=== PATIENT | female | born 1945 | race Caucasian/White ===

== ENCOUNTER 2021-08-17 10:13 | Inpatient (IN) ==
[2021-08-17] MEDS ORDERED: PIPERACILLIN/TAZOBACTAM 3,375 MG in SODIUM CHLORIDE 0.9% 100 ML IV STA (11:56)
[2021-08-17] MEDS ORDERED: SODIUM CHLORIDE 0.9% 500 ML IV STA (11:56)
[2021-08-17 12:57] LABS: Basophils # 0.1 10*3/uL (0.0-0.2); Basophils % 0.4 % (0.0-0.8); Eosinophils # 0.1 10*3/uL (0.0-0.87); Eosinophils % 0.2 % (0.00-10.9); Hematocrit 31.4 VOL% (35.7-47.0); Hemoglobin 9.8 GM/DL (12.0-16.0); Immature Granulocytes Absolute 0.62 #; Lymphocytes # 2.4 10*3/uL (1.4-4.0); Lymphocytes % 11.5 % (21.3-54.2); Mean Corpuscular HGB Conc 31.2 GM/DL (32-36); Mean Corpuscular Volume 91.5 FL (87-102); Mean Platelet Volume 10.5 FL (9.6-12.0); Monocytes % 5.6 % (1.7-12.7); Neutrophils % 79.3 % (38.7-73.9); Platelet Count 370 T/CUMM (130-400); Red Blood Count 3.43 MC/CUMM (3.8-5.5); Red Cell Distribution Width 14.6 % (9.3-17.3); White Blood Count 20.8 T/CUMM (4-12)
[2021-08-17 13:15] LABS: Bacteria,Urine Many /HPF (Few); Mucus,Urine Many /LPF (Occasional); RBC,Urine 3 /HPF (0-4); Squamous Epithelial Cell,Urine Occasional /HPF (0-10); Urine Appearance Slightly Cloudy (Clear); Urine Color Amber (Yellow)
[2021-08-17 13:16] LABS: Bilirubin,Urine Small mg/dL (Negative); Blood, Urine Negative (Negative); Glucose,Urine (UA) Negative (Negative); Ketones,Urine Trace mg/dL (Negative); Nitrite,Urine Positive (Negative); Protein,Urine 1+ MG/DL; Urine Urobilinogen > 8.0 EU/DL (<2.0); Urine pH 5.5 (4.5-8.0)
[2021-08-17 13:20] LABS: Alanine Aminotransferase 43 U/L (13-56); Albumin 1.8 G/DL (3.4-5.0); Alkaline Phosphatase 117 U/L (45-117); Aspartate Amino Transferase 73 U/L (0-37); Blood Urea Nitrogen 23 MG/DL (7-18); Calcium 8.2 MG/DL (8.5-10.1); Carbon Dioxide 18 MMOL/L (21-32); Estimated Glom Filtration Rate 35 ML/MIN; Glucose 134 MG/DL (74-106); Osmolality,Calculated 278.8 MOS/KG (273-304); Sodium 137 MMOL/L (136-145); Total Protein 6.5 G/DL (6.4-8.2)
[2021-08-17] MEDS ORDERED: ONDANSETRON 4 MG/2 ML VIAL IV PRN (13:32)
[2021-08-17] MEDS ORDERED: ACETAMINOPHEN 325 MG TABLET PO PRN (13:32)
[2021-08-17] MEDS ORDERED: ALBUTEROL/IPRATROPIUM 3 ML NEB RESP TX PRN (13:32)
[2021-08-17] MEDS ORDERED: HYDROmorphone 2 MG/1 ML VIAL IV PRN ×2 (13:32)
[2021-08-17 13:36] LABS: Lymphocytes 10 % (20-55); Platelet Estimate Normal; Segmented Neutrophils 84 % (50-85); Total Cells Counted 100
[2021-08-17] MEDS ORDERED: GLUCAGON 1 MG VIAL IM PRN (13:43)
[2021-08-17] MEDS ORDERED: hydrALAZINE 20 MG/1 ML VIAL IV PRN (13:43)
[2021-08-17] MEDS ORDERED: LACTATED RINGERS 2,000 ML IV ONE (13:48)
[2021-08-17] MEDS ORDERED: DEXTROSE 10% 250 ML BAG IV PRN (13:57)
[2021-08-17] MEDS ORDERED: SUCCINYLCHOLINE 200 MG/10 ML VIAL ONE (14:25)
[2021-08-17] MEDS ORDERED: LIDOCAINE 2% 5 ML VIAL ONE (14:25)
[2021-08-17] MEDS ORDERED: propofoL 200 MG/20 ML VIAL IV ONE (14:25)
[2021-08-17] MEDS ORDERED: MIDAZOLAM 2 MG/2 ML VIAL ONE (14:25)
[2021-08-17] MEDS ORDERED: fentaNYL 100 MCG/2 ML VIAL ONE (14:25)
[2021-08-17] MEDS ORDERED: BUPIVACAINE SPINAL 0.75% 2 ML AMP SPINAL ONE (15:00)
[2021-08-17] MEDS ORDERED: ONDANSETRON 4 MG/2 ML VIAL ONE (15:13)
[2021-08-17] MEDS ORDERED: VANCOMYCIN INJ 1,000 MG in SODIUM CHLORIDE 0.9% 250 ML IV SCH (15:30)
[2021-08-17] MEDS: LACTATED RINGERS 1,000 ML IV SCH ×2 (18:00→22:20)
[2021-08-17] MEDS: PIPERACILLIN/TAZOBACTAM 3,375 MG in SODIUM CHLORIDE 0.9% 100 ML IV SCH (18:41)
[2021-08-17] MEDS: GABAPENTIN 300 MG CAPSULE PO SCH (22:06)
[2021-08-17] MEDS: DOCUSATE SODIUM 100 MG CAPSULE PO SCH (22:06)
[2021-08-17] MEDS: LOSARTAN 25 MG TABLET PO SCH (22:06)
[2021-08-18] MEDS: GABAPENTIN 300 MG CAPSULE PO SCH ×2 (09:17→21:49)
[2021-08-18] MEDS: ASPIRIN EC 81 MG TABLET PO SCH (09:17)
[2021-08-18] MEDS: DOCUSATE SODIUM 100 MG CAPSULE PO SCH ×2 (09:17→21:49)
[2021-08-18] MEDS: POTASSIUM CHLORIDE 10 MEQ TABLET PO SCH (09:17)
[2021-08-18] MEDS: LOSARTAN 25 MG TABLET PO SCH ×2 (09:17→21:49)
[2021-08-18] MEDS: PIPERACILLIN/TAZOBACTAM 3,375 MG in SODIUM CHLORIDE 0.9% 100 ML IV SCH ×4 (09:18→23:54)
[2021-08-18] MEDS: DIAZEPAM 2 MG TABLET PO SCH (09:18)
[2021-08-18] MEDS: PANTOPRAZOLE 40 MG TABLET PO SCH (09:18)
[2021-08-18 09:37] LABS: Basophils % 0.3 % (0.0-0.8); Eosinophils # 0.1 10*3/uL (0.0-0.87); Eosinophils % 0.5 % (0.00-10.9); Hematocrit 27.4 VOL% (35.7-47.0); Hemoglobin 8.4 GM/DL (12.0-16.0); Immature Granulocytes % 3.1 %; Immature Granulocytes Absolute 0.42 #; Lymphocytes # 1.6 10*3/uL (1.4-4.0); Lymphocytes % 11.5 % (21.3-54.2); Mean Corpuscular HGB Conc 30.7 GM/DL (32-36); Mean Corpuscular Volume 93.8 FL (87-102); Monocytes % 6.8 % (1.7-12.7); Neutrophils % 77.8 % (38.7-73.9); Platelet Count 270 T/CUMM (130-400); Red Blood Count 2.92 MC/CUMM (3.8-5.5); Red Cell Distribution Width 14.8 % (9.3-17.3); White Blood Count 13.8 T/CUMM (4-12)
[2021-08-18 09:58] LABS: Osmolality,Calculated 287.1 MOS/KG (273-304); Potassium 3.9 MMOL/L (3.5-5.1)
[2021-08-18] MEDS: SODIUM HYPOCHLORITE 0.25% IRRIG 473 ML BOTTLE TOP SCH (12:59)
[2021-08-18] MEDS: LACTATED RINGERS 1,000 ML IV SCH ×3 (15:58→23:09)
[2021-08-19 05:01] LABS: Basophils # 0.1 10*3/uL (0.0-0.2); Basophils % 0.5 % (0.0-0.8); Eosinophils # 0.1 10*3/uL (0.0-0.87); Hematocrit 25.4 VOL% (35.7-47.0); Hemoglobin 7.8 GM/DL (12.0-16.0); Immature Granulocytes % 5.7 %; Immature Granulocytes Absolute 0.76 #; Lymphocytes # 2.3 10*3/uL (1.4-4.0); Lymphocytes % 17.4 % (21.3-54.2); Mean Corpuscular HGB Conc 30.7 GM/DL (32-36); Mean Platelet Volume 10.3 FL (9.6-12.0); Monocytes % 6.8 % (1.7-12.7); Neutrophils % 68.6 % (38.7-73.9); Platelet Count 260 T/CUMM (130-400); Red Blood Count 2.73 MC/CUMM (3.8-5.5); Red Cell Distribution Width 14.9 % (9.3-17.3); White Blood Count 13.2 T/CUMM (4-12)
[2021-08-19 05:17] LABS: Calcium 7.9 MG/DL (8.5-10.1); Potassium 3.9 MMOL/L (3.5-5.1)
[2021-08-19 05:45] LABS: Eosinophils 2 % (0-10); Lymphocytes 23 % (20-55); Platelet Estimate Adequate; Segmented Neutrophils 72 % (50-85); Total Cells Counted 100
[2021-08-19] MEDS: LACTATED RINGERS 1,000 ML IV SCH ×3 (06:20→23:19)
[2021-08-19] MEDS: PIPERACILLIN/TAZOBACTAM 3,375 MG in SODIUM CHLORIDE 0.9% 100 ML IV SCH (09:18)
[2021-08-19] MEDS ORDERED: fentaNYL 100 MCG/2 ML VIAL ONE (10:11)
[2021-08-19] MEDS ORDERED: MIDAZOLAM 2 MG/2 ML VIAL ONE (10:12)
[2021-08-19] MEDS ORDERED: SEVOFLURANE 1 UNIT/15 MINUTE INH ONE ×3 (11:24→11:26)
[2021-08-19] MEDS ORDERED: LIDOCAINE 2% 5 ML VIAL ONE (11:26)
[2021-08-19] MEDS ORDERED: propofoL 200 MG/20 ML VIAL IV ONE (11:26)
[2021-08-19] MEDS: SODIUM HYPOCHLORITE 0.25% IRRIG 473 ML BOTTLE TOP SCH (11:38)
[2021-08-19] MEDS: DOCUSATE SODIUM 100 MG CAPSULE PO SCH ×2 (11:38→21:42)
[2021-08-19] MEDS: LOSARTAN 25 MG TABLET PO SCH ×2 (11:38→21:42)
[2021-08-19] MEDS: ASPIRIN EC 81 MG TABLET PO SCH (11:38)
[2021-08-19] MEDS: POTASSIUM CHLORIDE 10 MEQ TABLET PO SCH (11:38)
[2021-08-19] MEDS: GABAPENTIN 300 MG CAPSULE PO SCH ×2 (11:39→21:42)
[2021-08-19] MEDS: DIAZEPAM 2 MG TABLET PO SCH (11:39)
[2021-08-19] MEDS: PANTOPRAZOLE 40 MG TABLET PO SCH (11:39)
[2021-08-19] MEDS ORDERED: ONDANSETRON 4 MG/2 ML VIAL IV PRN (11:48)
[2021-08-19] MEDS ORDERED: HYDROmorphone 2 MG/1 ML VIAL IV PRN (11:48)
[2021-08-19] MEDS: cefTRIAXone 1,000 MG in SODIUM CHLORIDE 0.9% 100 ML IV SCH (14:21)
[2021-08-19] MEDS ORDERED: TUBERCULIN SKIN TEST 0.1 ML SYRINGE INTRADERM ONE (15:30)
[2021-08-20 06:12] LABS: Basophils % 0.3 % (0.0-0.8); Eosinophils # 0.2 10*3/uL (0.0-0.87); Eosinophils % 1.4 % (0.00-10.9); Hematocrit 25.1 VOL% (35.7-47.0); Hemoglobin 7.7 GM/DL (12.0-16.0); Immature Granulocytes % 7.2 %; Immature Granulocytes Absolute 0.85 #; Lymphocytes # 2.3 10*3/uL (1.4-4.0); Lymphocytes % 19.4 % (21.3-54.2); Mean Corpuscular HGB Conc 30.7 GM/DL (32-36); Mean Corpuscular Volume 94.4 FL (87-102); Mean Platelet Volume 10.8 FL (9.6-12.0); Monocytes % 7.1 % (1.7-12.7); Neutrophils % 64.6 % (38.7-73.9); Platelet Count 251 T/CUMM (130-400); Red Blood Count 2.66 MC/CUMM (3.8-5.5); Red Cell Distribution Width 15.1 % (9.3-17.3); White Blood Count 11.8 T/CUMM (4-12)
[2021-08-20 06:25] LABS: Calcium 7.7 MG/DL (8.5-10.1); Osmolality,Calculated 274.1 MOS/KG (273-304); Potassium 3.8 MMOL/L (3.5-5.1)
[2021-08-20 06:32] LABS: Hypochromia 1+; Lymphocytes 16 % (20-55); Microcytosis 1+; Platelet Estimate Adequate; Segmented Neutrophils 77 % (50-85); Total Cells Counted 100
[2021-08-20] MEDS: PANTOPRAZOLE 40 MG TABLET PO SCH (08:13)
[2021-08-20] MEDS: GABAPENTIN 300 MG CAPSULE PO SCH ×2 (08:13→21:20)
[2021-08-20] MEDS: DOCUSATE SODIUM 100 MG CAPSULE PO SCH ×2 (08:13→21:20)
[2021-08-20] MEDS: ASPIRIN EC 81 MG TABLET PO SCH (08:13)
[2021-08-20] MEDS: LOSARTAN 25 MG TABLET PO SCH ×2 (08:13→21:20)
[2021-08-20] MEDS: DIAZEPAM 2 MG TABLET PO SCH (08:13)
[2021-08-20] MEDS: POTASSIUM CHLORIDE 10 MEQ TABLET PO SCH (08:14)
[2021-08-20] MEDS: SODIUM HYPOCHLORITE 0.25% IRRIG 473 ML BOTTLE TOP SCH (08:16)
[2021-08-20] MEDS: LACTATED RINGERS 1,000 ML IV SCH ×2 (11:52→19:52)
[2021-08-20] MEDS: cefTRIAXone 1,000 MG in SODIUM CHLORIDE 0.9% 100 ML IV SCH (14:56)
[2021-08-21] MEDS: LACTATED RINGERS 1,000 ML IV SCH ×5 (03:52→23:33)
[2021-08-21 05:35] LABS: Basophils % 0.3 % (0.0-0.8); Eosinophils # 0.2 10*3/uL (0.0-0.87); Eosinophils % 2.4 % (0.00-10.9); Hemoglobin 7.6 GM/DL (12.0-16.0); Immature Granulocytes Absolute 0.68 #; Lymphocytes # 1.4 10*3/uL (1.4-4.0); Lymphocytes % 18.4 % (21.3-54.2); Mean Corpuscular HGB Conc 30.4 GM/DL (32-36); Mean Corpuscular Volume 94.3 FL (87-102); Mean Platelet Volume 10.9 FL (9.6-12.0); Monocytes % 6.1 % (1.7-12.7); Neutrophils % 63.8 % (38.7-73.9); Red Blood Count 2.65 MC/CUMM (3.8-5.5); Red Cell Distribution Width 14.9 % (9.3-17.3)
[2021-08-21 05:42] LABS: Platelet Count 188 T/CUMM (130-400); White Blood Count 7.6 T/CUMM (4-12)
[2021-08-21 05:47] LABS: Calcium 7.9 MG/DL (8.5-10.1); Osmolality,Calculated 278.7 MOS/KG (273-304); Potassium 4.4 MMOL/L (3.5-5.1)
[2021-08-21 05:57] LABS: Band Neutrophils 2 % (0-10); Eosinophils 1 % (0-10); Hypochromia 1+; Lymphocytes 16 % (20-55); Microcytosis 1+; Myelocytes 1 %; Platelet Estimate Adequate; Segmented Neutrophils 71 % (50-85); Total Cells Counted 100
[2021-08-21] MEDS: DOCUSATE SODIUM 100 MG CAPSULE PO SCH ×2 (08:17→21:14)
[2021-08-21] MEDS: GABAPENTIN 300 MG CAPSULE PO SCH ×2 (08:17→21:14)
[2021-08-21] MEDS: LOSARTAN 25 MG TABLET PO SCH ×2 (08:17→21:14)
[2021-08-21] MEDS: PANTOPRAZOLE 40 MG TABLET PO SCH (08:18)
[2021-08-21] MEDS: DIAZEPAM 2 MG TABLET PO SCH (08:18)
[2021-08-21] MEDS: SODIUM HYPOCHLORITE 0.25% IRRIG 473 ML BOTTLE TOP SCH (08:18)
[2021-08-21] MEDS: ASPIRIN EC 81 MG TABLET PO SCH (08:18)
[2021-08-21] MEDS: POTASSIUM CHLORIDE 10 MEQ TABLET PO SCH (08:18)
[2021-08-21] MEDS: cefTRIAXone 1,000 MG in SODIUM CHLORIDE 0.9% 100 ML IV SCH (15:08)
[2021-08-22] MEDS: LACTATED RINGERS 1,000 ML IV SCH ×2 (06:19→14:47)
[2021-08-22] MEDS: POTASSIUM CHLORIDE 10 MEQ TABLET PO SCH (08:53)
[2021-08-22] MEDS: LOSARTAN 25 MG TABLET PO SCH (08:53)
[2021-08-22] MEDS: GABAPENTIN 300 MG CAPSULE PO SCH (08:53)
[2021-08-22] MEDS: ASPIRIN EC 81 MG TABLET PO SCH (08:53)
[2021-08-22] MEDS: PANTOPRAZOLE 40 MG TABLET PO SCH (08:53)
[2021-08-22] MEDS: DIAZEPAM 2 MG TABLET PO SCH (08:53)
[2021-08-22] MEDS: DOCUSATE SODIUM 100 MG CAPSULE PO SCH (08:54)
[2021-08-22] MEDS: metroNIDAZOLE 500 MG TABLET PO SCH ×2 (10:23→12:55)
[2021-08-22] MEDS ORDERED: CEFUROXIME 250 MG TABLET PO SCH ×2 (10:30→11:00)
[2021-08-22] MEDS: SODIUM HYPOCHLORITE 0.25% IRRIG 473 ML BOTTLE TOP SCH (11:05)
[2021-08-22 13:41] VITALS: BP 144/71
== END 2021-08-22 14:26 | disposition swing bed (61) | DRG 356 ==
LOC: EDUNIT# → EDBD → N.ED 10:13 → SUATTDRO 13:43 → N.3E 13:43 → N.ED 14:30 → N.3E 15:40
PROVIDERS: ADMIT Internal Medicine; ATTEND Internal Medicine